=== PATIENT | female | born 1935 | race Caucasian/White ===

== ENCOUNTER → 2017-04-02 | Outpatient (CLI) | payer MEDICARE | END | disposition home or self-care (01) | LOC: LAB SHORT 08:04 → PLD 08:04 | DX: D48.5 Neoplasm of uncertain behavior of skin (principal) | CPT/HCPCS: 88305 ==

== ENCOUNTER → 2017-05-21 | Outpatient (CLI) | payer MEDICARE | END | disposition home or self-care (01) | LOC: LAB 17:06 | DX: N39.0 Urinary tract infection, site not specified (principal) | CPT/HCPCS: 87077; 87086; 87186 ==

== ENCOUNTER 2018-06-18 10:25 | Day surgery (SDC) | payer MEDICARE ==
[~2018-06-18] VITALS: Ht 162.6 cm; Wt 95.4 kg
[~2018-06-18 10:25] MED LIST: ATOR10; CLOP75; LOSA25; METF500C PO; PANT40; TRIA50
[2018-06-18] MEDS ORDERED: YUVAFEM10 MCG (11:07)
--- NOTE | 2018-06-18 11:13 | NUR ---
06/18/18 1113 Cash Bella 1ST AND 2ND IV ATTENPTS IN [facility] AND [facility]FA UNSUCCESSFUL, JOSE DE JESUS 3RD ATTEMPT SUCCESSFUL, LATHA
== END 2018-06-18 12:35 | disposition home or self-care (01) ==
LOC: ORSCSDS 10:25
PROVIDERS: Ophthalmology
PROC: 08RJ3JZ Replacement of Right Lens with Synthetic Substitute, Percutaneous Approach (ICD-10-PCS; principal; 2018-06-18 12:00)
DX: H25.11 Age-related nuclear cataract, right eye (principal); I10 Essential (primary) hypertension; G47.33 Obstructive sleep apnea (adult) (pediatric); E66.9 Obesity, unspecified; Z68.36 Body mass index [BMI] 36.0-36.9, adult; Z79.01 Long term (current) use of anticoagulants; Z79.899 Other long term (current) drug therapy; Z79.84 Long term (current) use of oral hypoglycemic drugs
CPT/HCPCS: 82947; J2001; J2250; J3010; V2632

== ENCOUNTER 2018-07-16 11:51 | Day surgery (SDC) | payer MEDICARE ==
[~2018-07-16] VITALS: Ht 162.6 cm; Wt 93.6 kg
[~2018-07-16 11:51] MED LIST changes: +YUVAFEM10 MCG
--- NOTE | 2018-07-16 13:06 | NUR ---
07/16/18 1306 Erin Mcghee GV USED
== END 2018-07-16 13:44 | disposition home or self-care (01) ==
LOC: ORSCSDS 11:51
PROVIDERS: Ophthalmology
PROC: 08RK3JZ Replacement of Left Lens with Synthetic Substitute, Percutaneous Approach (ICD-10-PCS; principal; 2018-07-16 13:30)
DX: H25.12 Age-related nuclear cataract, left eye (principal); E11.36 Type 2 diabetes mellitus with diabetic cataract; I10 Essential (primary) hypertension; G47.33 Obstructive sleep apnea (adult) (pediatric); Z86.73 Personal history of transient ischemic attack (TIA), and cerebral infarction without residual deficits; E78.5 Hyperlipidemia, unspecified; F41.9 Anxiety disorder, unspecified; Z79.84 Long term (current) use of oral hypoglycemic drugs; Z79.899 Other long term (current) drug therapy
CPT/HCPCS: 82947; J2001; J2250; J3010; V2632

== ENCOUNTER → 2018-10-05 | Outpatient (CLI) | payer MEDICARE ==
[~2018-10-05] MED LIST changes: +ALPR.25 PO; +ASCO500 PO; -ATOR10; +ATOR10 PO; -CLOP75; +CLOP75 PO; +Coenzyme Q10200 M2 PO; +Cranberry300 MG PO; +Dyazide 37.5-21 EACH PO; +Glucosamine-Ch480 ML PO; -LOSA25; +LOSA25 PO; +MOVE FREE JOIN1 EACH PO; -PANT40; +PANT40 PO; -YUVAFEM10 MCG; +YUVAFEM10 MCG VAG; +[UNRECOGNIZED DRUG - OTHER] PO
[2018-10-05 17:36] LABS: Source, Urine Clean Catch
[2018-10-05 18:23] LABS: Blood, Urine 2+ (Neg); Glucose Qualitative, Urine Neg (Neg); Ketones, Urine Neg (Neg); Leukocyte Esterase, Urine 3+ (Neg); Nitrite, Urine Pos (Neg); Protein, Urine 1+ (Neg); Specific Gravity, Urine 1.015 (1.003-1.022); Urobilinogen, Urine 3+ (Normal)
[2018-10-05 18:38] LABS: Appearance, Urine Hazy (Clear); Bilirubin, Urine 3+ (Neg); Color, Urine Orange (P-Yellow)
[2018-10-05 18:39] LABS: Amorphous Mod (0-Heavy); Bacteria Mod /hpf; Red Blood Cells, Urine 0-2 /hpf (0-2); Squamous Epithelial Cells Few /hpf (Few); White Blood Cells, Urine 50-100 /hpf (0-5)
== END | disposition home or self-care (01) ==
LOC: LAB SHORT 17:34 → LAB 17:34
PROVIDERS: Internal Medicine
DX: R35.0 Frequency of micturition (principal); R30.0 Dysuria
CPT/HCPCS: 81001; 87077; 87086; 87186

== ENCOUNTER 2018-12-15 09:47 | Day surgery (SDC) | payer MEDICARE ==
[~2018-12-15] VITALS: Ht 162.6 cm; Wt 94.6 kg
== END 2018-12-15 11:16 | disposition home or self-care (01) ==
LOC: ORSCSDS 09:47
PROVIDERS: Surgery
PROC: 0DBL8ZX Excision of Transverse Colon, Via Natural or Artificial Opening Endoscopic, Diagnostic (ICD-10-PCS; principal; 2018-12-15 11:00)
DX: Z12.11 Encounter for screening for malignant neoplasm of colon (principal); D12.3 Benign neoplasm of transverse colon; D17.9 Benign lipomatous neoplasm, unspecified; K57.30 Diverticulosis of large intestine without perforation or abscess without bleeding; Z86.010 Personal history of colon polyps; Z80.0 Family history of malignant neoplasm of digestive organs; G47.33 Obstructive sleep apnea (adult) (pediatric); Z86.73 Personal history of transient ischemic attack (TIA), and cerebral infarction without residual deficits; E11.9 Type 2 diabetes mellitus without complications; I10 Essential (primary) hypertension; E78.5 Hyperlipidemia, unspecified; F41.9 Anxiety disorder, unspecified; Z79.84 Long term (current) use of oral hypoglycemic drugs; Z79.899 Other long term (current) drug therapy
CPT/HCPCS: 82947; 88305; J2704; J7120

== ENCOUNTER → 2019-02-26 | Outpatient (CLI) | payer MEDICARE | END | disposition home or self-care (01) | LOC: LAB 07:32 → LAB SHORT 07:32 | DX: N39.0 Urinary tract infection, site not specified (principal); M54.5 Low back pain; R30.0 Dysuria | CPT/HCPCS: 87077; 87086; 87186 ==

== ENCOUNTER → 2019-11-08 | Outpatient (CLI) | payer MEDICARE | END | disposition home or self-care (01) | LOC: LAB SHORT 18:39 → LAB 18:39 | DX: R35.0 Frequency of micturition (principal) | CPT/HCPCS: 87086 ==

== ENCOUNTER → 2019-11-24 | Outpatient (CLI) | payer MEDICARE | LOC: LAB 15:22 → LAB SHORT 15:22 | DX: N76.0 Acute vaginitis (principal) | CPT/HCPCS: 88305 ==

== ENCOUNTER 2020-02-03 10:24 | Emergency (ER) | payer MEDICARE ==
[~2020-02-03] VITALS: Ht 162.6 cm; Wt 94.3 kg
[2020-02-03 10:48] LABS: Source, Urine Clean Catch
[2020-02-03 10:55] LABS: Appearance, Urine Cloudy (Clear); Bilirubin, Urine Neg (Neg); Blood, Urine 5+ (Neg); Color, Urine Yellow (P-Yellow); Glucose Qualitative, Urine Neg (Neg); Ketones, Urine Neg (Neg); Leukocyte Esterase, Urine 3+ (Neg); Nitrite, Urine Pos (Neg); Protein, Urine 3+ (Neg); Urobilinogen, Urine NORM (Normal)
[2020-02-03 11:09] LABS: Bacteria Many /hpf; Red Blood Cells, Urine TNTC /hpf (0-2); Squamous Epithelial Cells Rare /hpf (Few); White Blood Cells, Urine TNTC /hpf (0-5)
[2020-02-03] MEDS ORDERED: CEPHALEXIN500 M1 PO (11:51)
== END 2020-02-03 11:58 | disposition home or self-care (01) ==
LOC: ER 10:24
PROVIDERS: Emergency Medicine
DX: N39.0 Urinary tract infection, site not specified (principal); Z79.02 Long term (current) use of antithrombotics/antiplatelets; Z79.899 Other long term (current) drug therapy; Z79.84 Long term (current) use of oral hypoglycemic drugs; Z88.1 Allergy status to other antibiotic agents; Z88.2 Allergy status to sulfonamides
CPT/HCPCS: 81001; 87077; 87086; 87186; 99283

== ENCOUNTER → 2020-02-13 | Outpatient (CLI) | payer MEDICARE ==
[~2020-02-13] MED LIST changes: +CEPHALEXIN500 M1 PO
== END ==
LOC: LAB SHORT 14:42 → LAB 14:42
DX: R30.0 Dysuria (principal)
CPT/HCPCS: 87077; 87086; 87186

== ENCOUNTER → 2020-09-06 | Outpatient (CLI) | payer MEDICARE | END | disposition home or self-care (01) | LOC: LAB SHORT 17:45 | DX: N30.01 Acute cystitis with hematuria (principal) | CPT/HCPCS: 87077; 87086; 87186 ==

== ENCOUNTER → 2020-12-01 | Outpatient (CLI) | payer MEDICARE ==
[2020-12-01 14:07] LABS: Creatinine, Urine Random 59.1 mg/dL (27.00-270.00); Microalb/Creat Ratio UR, Rand 58.545 mg/g (0.000-30.000); Microalbumin, Random Urine 34.6 mg/L (0.000-20.000)
== END | disposition home or self-care (01) ==
LOC: LAB SHORT 12:34
PROVIDERS: Family Medicine
DX: R80.9 Proteinuria, unspecified (principal)
CPT/HCPCS: 82043; 82570

== ENCOUNTER → 2021-03-24 | Outpatient (CLI) | payer MEDICARE | END | disposition home or self-care (01) | LOC: LAB SHORT 16:00 | DX: R30.9 Painful micturition, unspecified (principal) | CPT/HCPCS: 87077; 87086; 87186 ==

== ENCOUNTER → 2021-05-30 | Outpatient (CLI) | payer MEDICARE | END | disposition home or self-care (01) | LOC: LAB 13:50 → LAB SHORT 13:50 | DX: R30.9 Painful micturition, unspecified (principal) | CPT/HCPCS: 87077; 87086; 87186 ==

== ENCOUNTER → 2021-06-08 | Outpatient (CLI) | payer MEDICARE | END | disposition home or self-care (01) | LOC: LAB SHORT 17:14 → LAB 17:14 | DX: R30.9 Painful micturition, unspecified (principal) | CPT/HCPCS: 87077; 87086; 87186 ==

== ENCOUNTER 2021-08-17 10:41 | Emergency (ER) | payer MEDICARE ==
[~2021-08-17] VITALS: Ht 162.6 cm; Wt 93.0 kg
[~2021-08-17 10:41] MED LIST changes: +CONEST.9 PO; +DYAZIDE 37.5-21 EACH PO; +PANT40; +POTCHL20ER PO; +XARELTO1 EAC1 PO; +XARELTO15 MG PO; +XARELTO20 MG PO
[2021-08-17 12:06] LABS: BASOPHILS ABSOLUTE AUTO 0.02 K/mm3 (0.00-0.23); BASOPHILS PERCENT AUTO 0 % (0-2); EOSINOPHILS ABSOLUTE AUTO 0.18 K/mm3 (0.00-0.68); EOSINOPHILS PERCENT AUTO 2 % (0-6); Hematocrit 37.5 % (33.0-51.0); Hemoglobin 12.3 g/dL (11.5-16.0); IMMATURE GRAN ABSOLUTE AUTO 0.04 K/mm3 (0.00-0.10); IMMATURE GRAN PERCENT AUTO 0 % (0-1); LYMPHOCYTES ABSOLUTE AUTO 1.58 K/mm3 (0.84-5.20); LYMPHOCYTES PERCENT AUTO 17 % (21-46); MONOCYTES ABSOLUTE AUTO 0.67 K/mm3 (0.16-1.47); MONOCYTES PERCENT AUTO 7 % (4-13); Mean Corpuscular HGB 30.1 pg (26.0-34.0); Mean Corpuscular HGB Conc 32.8 g/dL (31.5-36.5); Mean Corpuscular Volume 92 fL (80-100); Mean Platelet Volume 10.5 fL (9.1-12.4); NEUTROPHILS ABSOLUTE AUTO 7.02 K/mm3 (1.96-9.15); NEUTROPHILS PERCENT AUTO 74 % (41-73); Platelet Count 176 K/mm3 (150-400); RDW Coefficient Variation 12.8 % (11.7-14.2); RDW Standard Deviation 43.2 fL (35.1-46.3); Red Blood Cell Count 4.08 M/mm3 (3.80-5.20); White Blood Cell Count 9.51 K/mm3 (4.00-11.30)
[2021-08-17 12:18] LABS: Albumin, Blood 3.5 g/dL (3.4-5.0); Bilirubin, Total 0.7 mg/dL (0.1-1.0); Bun/Creatinine Ratio 24.5 (12.0-20.0); Calcium, Blood 10.2 mg/dL (8.5-10.1); Creatinine, Blood 1.02 mg/dL (0.40-1.00); Globulin, Blood 3.6 g/dL (2.2-4.0); Total Protein, Blood 7.1 g/dL (6.4-8.2)
[2021-08-17] MEDS ORDERED: HYDR1TAB94 PO (16:16)
== END 2021-08-17 16:50 | disposition home or self-care (01) ==
LOC: ER 10:41
PROVIDERS: Physician Assistant
DX: I26.99 Other pulmonary embolism without acute cor pulmonale (principal); Z88.1 Allergy status to other antibiotic agents; Z88.2 Allergy status to sulfonamides; Z79.899 Other long term (current) drug therapy; Z79.84 Long term (current) use of oral hypoglycemic drugs; Z79.02 Long term (current) use of antithrombotics/antiplatelets; Z79.01 Long term (current) use of anticoagulants
CPT/HCPCS: 80053; 85025; 93005; 93010; J2405; J3010

== ENCOUNTER → 2021-08-21 | Outpatient (CLI) | payer MEDICARE ==
[~2021-08-21] MED LIST changes: +HYDR1TAB94 PO
== END | disposition home or self-care (01) ==
LOC: LAB SHORT 14:22 → LAB 14:22
DX: R30.9 Painful micturition, unspecified (principal)
CPT/HCPCS: 87077; 87086; 87186

== ENCOUNTER → 2021-09-12 | Outpatient (CLI) | payer MEDICARE | END | disposition home or self-care (01) | LOC: LAB 15:49 → LAB SHORT 15:49 | DX: R30.0 Dysuria (principal); R30.9 Painful micturition, unspecified | CPT/HCPCS: 87077; 87086; 87186 ==

== ENCOUNTER → 2021-10-28 | Outpatient (CLI) | payer MEDICARE | END | disposition home or self-care (01) | LOC: LAB SHORT 11:42 → LAB 11:42 | DX: N39.0 Urinary tract infection, site not specified (principal) | CPT/HCPCS: 87077; 87086; 87186 ==

== ENCOUNTER → 2022-08-16 | Outpatient (CLI) | payer MEDICARE ==
[2022-08-16 11:49] LABS: Creatinine, Urine Random 50.2 mg/dL (27.00-270.00); Microalb/Creat Ratio UR, Rand 30.677 mg/g (0.000-30.000); Microalbumin, Random Urine 15.4 mg/L (0.000-20.000)
== END | disposition home or self-care (01) ==
LOC: LAB SHORT 09:48 → LAB 09:48
PROVIDERS: Family Medicine
DX: E11.29 Type 2 diabetes mellitus with other diabetic kidney complication (principal); E11.36 Type 2 diabetes mellitus with diabetic cataract
CPT/HCPCS: 82043; 82570

== ENCOUNTER → 2022-10-31 | Outpatient (CLI) | payer MEDICARE | END | disposition home or self-care (01) | LOC: LAB 14:00 → LAB SHORT 14:00 | DX: M10.9 Gout, unspecified (principal) | CPT/HCPCS: 84550 ==

== ENCOUNTER 2023-06-28 05:22 | Observation (INO) | payer MEDICARE ==
[~2023-06-28] VITALS: Ht 162.6 cm; Wt 94.7 kg
[~2023-06-28 05:22] MED LIST changes: +Acerola C500 MG PO; +Cranberry400 MG PO; +GLUC500 PO; +[UNRECOGNIZED DRUG - CODE] PO
[2023-06-28] MEDS ORDERED: NS 1,000 ML IV SCH ×2 (05:35→05:50)
[2023-06-28 05:42] LABS: BASOPHILS ABSOLUTE AUTO 0.02 K/mm3 (0.00-0.23); BASOPHILS PERCENT AUTO 0 % (0-2); EOSINOPHILS ABSOLUTE AUTO 0.26 K/mm3 (0.00-0.68); EOSINOPHILS PERCENT AUTO 3 % (0-6); Hematocrit 34.4 % (33.0-51.0); Hemoglobin 11.3 g/dL (11.5-16.0); IMMATURE GRAN ABSOLUTE AUTO 0.04 K/mm3 (0.00-0.10); IMMATURE GRAN PERCENT AUTO 0 % (0-1); LYMPHOCYTES ABSOLUTE AUTO 2.65 K/mm3 (0.84-5.20); LYMPHOCYTES PERCENT AUTO 26 % (21-46); MONOCYTES ABSOLUTE AUTO 0.74 K/mm3 (0.16-1.47); MONOCYTES PERCENT AUTO 7 % (4-13); Mean Corpuscular HGB 30.2 pg (26.0-34.0); Mean Corpuscular HGB Conc 32.8 g/dL (31.5-36.5); Mean Corpuscular Volume 92 fL (80-100); Mean Platelet Volume 10.5 fL (9.1-12.4); NEUTROPHILS ABSOLUTE AUTO 6.38 K/mm3 (1.96-9.15); NEUTROPHILS PERCENT AUTO 63 % (41-73); Platelet Count 225 K/mm3 (150-400); RDW Standard Deviation 43.8 fL (35.1-46.3); Red Blood Cell Count 3.74 M/mm3 (3.80-5.20); White Blood Cell Count 10.09 K/mm3 (4.00-11.30)
[2023-06-28 06:03] LABS: Albumin/Globulin Ratio 0.7 (0.8-1.8); Bilirubin, Total 0.6 mg/dL (0.1-1.0); Bun/Creatinine Ratio 24.8 (12.0-20.0); Calcium, Blood 10.3 mg/dL (8.5-10.1); Creatinine, Blood 1.25 mg/dL (0.40-1.00); Globulin, Blood 4.2 g/dL (2.2-4.0); Magnesium, Blood 1.7 mg/dL (1.6-2.4); Potassium, Blood 4.7 mmol/L (3.5-5.5); Total Protein, Blood 7.2 g/dL (6.4-8.2)
[2023-06-28 06:06] LABS: International Normalized Ratio 0.93
[2023-06-28] MEDS ORDERED: FentaNYL Citrate 50 MCG/ML 2 ML Injection IV ONE (06:55)
[2023-06-28] MEDS ORDERED: Atorvastatin 40 MG Tab PO SCH (10:00)
[2023-06-28] MEDS ORDERED: Aspirin 325 MG Tab PO ONE (10:00)
[2023-06-28] MEDS ORDERED: Heparin Sodium,Porcine/0.5 NS 500 ML IV SCH (10:20)
[2023-06-28] MEDS ORDERED: Heparin Sodium 5000 Units/ML 1ML MDV IV ONE (10:20)
[2023-06-28 11:00] VITALS: BP 131/61
[2023-06-28] MEDS ORDERED: CEPH250A PO (11:08)
[2023-06-28] MEDS ORDERED: Insulin Human Lispro 100 Units/ML 3ML Syringe SC SCH (11:49)
--- NOTE | 2023-06-28 11:54 | NUR ---
ARRIVAL TO PCU patient arrived to pcu at 1050. patient walked into bathroom from [facility] and then to the bed. patient did this independently. patient denies chest pain/pressure at this time. vital signs stable. tele sinus rhythm with pvc and pac and lbbb. patient has shortness of breath with exertion. on room air with spo2 >95%. patient lung sounds dim throughout bilaterally. gi/gu within normal limits. neuro is intact. alert and oriented x4. perrla. see admit shift assesment for further detials. plan of care is up to date at this time.
[2023-06-28 13:01] LABS: Adenovirus Not Detected (NOT DETECT); Bordetella pertussis Not Detected (NOT DETECT); Chlamydophila pneumoniae Not Detected (NOT DETECT); Coronavirus 229E Not Detected (NOT DETECT); Coronavirus HKU1 Not Detected (NOT DETECT); Coronavirus NL63 Not Detected (NOT DETECT); Coronavirus OC43 Not Detected (NOT DETECT); Human Metapneumovirus Not Detected (NOT DETECT); Human Rhinovirus/Enterovirus Not Detected (NOT DETECT); Influenza A/2009-H1 Not Detected (NOT DETECT); Influenza A/H1 Not Detected (NOT DETECT); Influenza A/H3 Not Detected (NOT DETECT); Influenza B Not Detected (NOT DETECT); Mycoplasma pneumoniae Not Detected (NOT DETECT); Parainfluenza Virus 1 Not Detected (NOT DETECT); Parainfluenza Virus 2 Not Detected (NOT DETECT); Parainfluenza Virus 3 Not Detected (NOT DETECT); Parainfluenza Virus 4 Not Detected (NOT DETECT); Respiratory Syncytial Virus Not Detected (NOT DETECT); SARS-Cov-2 (COVID-19), BioFire Not Detected (NOT DETECT)
[2023-06-28 15:40] LABS: Source, Urine Clean Catch
[2023-06-28 15:43] LABS: Appearance, Urine Hazy (Clear); Bilirubin, Urine Neg (Neg); Blood, Urine Neg (Neg); Color, Urine Yellow (P-Yellow); Glucose Qualitative, Urine Neg (Neg); Ketones, Urine 1+ (Neg); Leukocyte Esterase, Urine 2+ (Neg); Nitrite, Urine Neg (Neg); Protein, Urine 2+ (Neg); Urobilinogen, Urine NORM (Normal)
[2023-06-28 15:52] LABS: Hyaline Casts 0-2 /lpf (0-2)
[2023-06-28 15:53] LABS: Bacteria Mod /hpf; Red Blood Cells, Urine 0-2 /hpf (0-2); Squamous Epithelial Cells Many /hpf (Few)
[2023-06-28 16:33] VITALS: BP 144/66
[2023-06-28] MEDS ORDERED: Morphine Sulfate 10 MG/ML 1MLSYR IV PRN (16:50)
[2023-06-28] MEDS ORDERED: Mag Hydrox/Al Hydrox/Simeth 18 ML,Lidocaine 2% Viscous Soln 9 ML,Atropine/Scopalam/Hyos... PO ONE (17:00)
--- NOTE | 2023-06-28 17:59 | NUR ---
shift summary patient complained once since arriving to pcu of chest pain, and medicated with pain medication and gi cocktail. patient reports slight improvement in pain, rated at 6. vital signs stable. otherwise no acute changes. plan of care remains up to date.
[2023-06-28 18:22] LABS: Source, Urine Straight Cath
[2023-06-28 18:25] LABS: Appearance, Urine Clear (Clear); Bilirubin, Urine Neg (Neg); Blood, Urine 1+ (Neg); Color, Urine Yellow (P-Yellow); Glucose Qualitative, Urine Neg (Neg); Ketones, Urine Neg (Neg); Leukocyte Esterase, Urine Neg (Neg); Nitrite, Urine Neg (Neg); Protein, Urine 1+ (Neg); Specific Gravity, Urine 1.015 (1.003-1.022); Urobilinogen, Urine NORM (Normal)
[2023-06-28 18:32] LABS: Bacteria Rare /hpf; Hyaline Casts 0-2 /lpf (0-2); Red Blood Cells, Urine 0-2 /hpf (0-2); Squamous Epithelial Cells Not Seen /hpf (Few); White Blood Cells, Urine 0-2 /hpf (0-5)
[2023-06-28 19:54] VITALS: BP 135/56
[2023-06-28] MEDS ORDERED: Naloxone HCl 0.4MG / ML 1ML Vial IV PRN (20:30)
[2023-06-28] MEDS ORDERED: Morphine Sulfate 4 MG/1 ML Injection IV PRN (20:30)
[2023-06-28] MEDS ORDERED: Acetaminophen 500 MG Tab PO PRN (20:35)
[2023-06-28] MEDS ORDERED: HYDROcodone 5-APAP 325 TAB PO ONE (21:00)
[2023-06-28] MEDS ORDERED: Clopidogrel Bisulfate 75 MG Tab PO SCH (21:00)
[2023-06-28] MEDS ORDERED: HYDROcodone 5-APAP 325 TAB PO PRN (21:00)
[2023-06-28 23:47] VITALS: BP 137/55
[2023-06-29] MEDS ORDERED: Clarify Drug Order XX ONE ×2 (00:10→06:40)
[2023-06-29 05:27] VITALS: BP 139/61
--- NOTE | 2023-06-29 05:46 | NUR ---
SHIFT SUMMARY PATIENT ALERT AND ORIENTED x4, ABLE TO MAKE NEEDS KNOWN TO STAFF. BP STABLE, TELE READING SR, BBB 70s DURING THE NIGHT. PATIENT ON RA WHILE AWAKE, WEARING HOME CPAP WHILE SLEEPING, SPO2 >90%. PATIENT STANDBY ASSIST TO BATHROOM, ADEQUATE OUTPUT DURING THE NIGHT. PATIENT MEDICATED PER EMAR FOR CHEST PAIN, PATIENT REPORTED BETTER RELIEF OF PAIN AFTER SWITCHING TO NORCO. NO OTHER CHANGES DURING THE NIGHT. PATIENT AWAITING CARDIOLOGY CONSULT THIS AM. WILL REPORT TO DAY SHIFT RN.
[2023-06-29] MEDS ORDERED: Pantoprazole Sodium 40 MG Tab PO SCH (06:00)
[2023-06-29 06:10] LABS: BASOPHILS ABSOLUTE AUTO 0.04 K/mm3 (0.00-0.23); BASOPHILS PERCENT AUTO 0 % (0-2); EOSINOPHILS ABSOLUTE AUTO 0.42 K/mm3 (0.00-0.68); EOSINOPHILS PERCENT AUTO 5 % (0-6); Hematocrit 35.3 % (33.0-51.0); Hemoglobin 11.1 g/dL (11.5-16.0); IMMATURE GRAN ABSOLUTE AUTO 0.03 K/mm3 (0.00-0.10); IMMATURE GRAN PERCENT AUTO 0 % (0-1); LYMPHOCYTES ABSOLUTE AUTO 2.36 K/mm3 (0.84-5.20); LYMPHOCYTES PERCENT AUTO 27 % (21-46); MONOCYTES PERCENT AUTO 9 % (4-13); Mean Corpuscular HGB 29.8 pg (26.0-34.0); Mean Corpuscular HGB Conc 31.4 g/dL (31.5-36.5); Mean Corpuscular Volume 95 fL (80-100); Mean Platelet Volume 10.5 fL (9.1-12.4); NEUTROPHILS ABSOLUTE AUTO 5.27 K/mm3 (1.96-9.15); NEUTROPHILS PERCENT AUTO 59 % (41-73); Platelet Count 190 K/mm3 (150-400); RDW Coefficient Variation 13.4 % (11.7-14.2); RDW Standard Deviation 47.4 fL (35.1-46.3); Red Blood Cell Count 3.72 M/mm3 (3.80-5.20); White Blood Cell Count 8.92 K/mm3 (4.00-11.30)
[2023-06-29 06:50] LABS: Albumin, Blood 2.7 g/dL (3.4-5.0); Albumin/Globulin Ratio 0.6 (0.8-1.8); Bilirubin, Total 0.6 mg/dL (0.1-1.0); Bun/Creatinine Ratio 26.2 (12.0-20.0); Calcium, Blood 9.7 mg/dL (8.5-10.1); Creatinine, Blood 1.07 mg/dL (0.40-1.00); Globulin, Blood 4.4 g/dL (2.2-4.0); Potassium, Blood 4.2 mmol/L (3.5-5.5); Total Protein, Blood 7.1 g/dL (6.4-8.2)
--- NOTE | 2023-06-29 07:48 | NUR ---
AM NOTE PT IS ALERT AND ORIENTED X 4. SHE REPORTED THIS AM IS THE FIRST TIME SHE HAS HAD AN APPETITE IN A WHILE. SHE REPORTED FEELING MINIMAL CP AND DENIED NEEDED MEDICATION TO MANAGE PAIN. SHE IS CURRENTLY IN BED EATING BREAKFAST. CALL LIGHT W/IN REACH.
[2023-06-29 07:50] VITALS: BP 117/102
[2023-06-29] MEDS ORDERED: Cephalexin Monohydrate 250 MG Cap PO SCH (09:00)
[2023-06-29] MEDS ORDERED: Cranberry Extract 250MG W/30 MG Vitamin C Tab PO SCH (09:00)
[2023-06-29] MEDS ORDERED: Ascorbic Acid 250 MG Chew PO SCH (09:00)
[2023-06-29] MEDS ORDERED: COENZYME Q10 PO SCH (09:00)
[2023-06-29] MEDS ORDERED: Glucosamine Sulfate 500 MG Cap PO SCH (09:00)
[2023-06-29] MEDS ORDERED: Metoprolol Succinate 25 MG TABCR PO SCH (10:00)
--- NOTE | 2023-06-29 10:19 | NUR ---
CARE NOTE PT AMBULATED W/ THIS RN AROUND UNIT AND REPORTED "FEELING GOOD." SHE SAID THERE WAS VERY MINIMAL CHEST PRESSURE. HR STABLE. SHE DENIED FEELING LIGHTHEADED/DIZZY.
[2023-06-29 10:24] VITALS: BP 154/71
[2023-06-29 11:11] VITALS: BP 134/60
[2023-06-29] MEDS ORDERED: METO25ER PO (11:29)
[2023-06-29] MEDS ORDERED: FURO40 PO (11:29)
[2023-06-29] MEDS ORDERED: Isosorbide Mono30 MG PO (11:29)
--- NOTE | 2023-06-29 12:18 | NUR ---
DISCHARGE NOTE PT WAS ALERT AND ORIENTED X 4. VSS. SHE REPORTED MINIMAL CHEST DISCOMFORT BUT DENIED NEEDING PAIN MANAGEMENT. THIS RN REMOVED ALL IV ACCESS. THIS RN DISCUSSED DISCHARGE INSTRUCTIONS INCLUDING FOLLOW UP APPOINTMENTS, MEDICAITON REGIMEN WELL EDUCATION REGARDING NEW MEDICATIONS. PT DENIED FEELING SOB, NAUSEOUS, OR LIGHTHEADED/DIZZY. SHE WAS INDEPENDENT IN ROOM AND APPEARED STEADY ON HER FEET. SHE LEFT PCU AT APPROX. 1215 AND WAS ESCORTED TO HER SONS CAR VIA WHEELCHAIR BY BRAYAN THOMPSON. ALL OF HER PERSONAL BELONGINGS WENT WITH HER.
[2023-06-30] MEDS ORDERED: Isosorbide Mononitrate 30 MG TABCR PO SCH (09:00)
[2023-06-30] MEDS ORDERED: Furosemide 40 MG Tab PO SCH (09:00)
== END 2023-06-29 12:22 | disposition home or self-care (01) ==
LOC: ER 05:22 → PCU 05:23 → ER 09:15 → PCU 10:48
PROVIDERS: Student in an Organized Health Care Education/Training Program; ADMIT Internal Medicine
DX: I25.118 Atherosclerotic heart disease of native coronary artery with other forms of angina pectoris (principal); I95.9 Hypotension, unspecified; K21.9 Gastro-esophageal reflux disease without esophagitis; M10.9 Gout, unspecified; E78.5 Hyperlipidemia, unspecified; I10 Essential (primary) hypertension; G47.30 Sleep apnea, unspecified; E11.40 Type 2 diabetes mellitus with diabetic neuropathy, unspecified; Z88.8 Allergy status to other drugs, medicaments and biological substances; Z88.2 Allergy status to sulfonamides; Z79.84 Long term (current) use of oral hypoglycemic drugs; Z79.899 Other long term (current) drug therapy
CPT/HCPCS: 0202U; 36415; 71045; 80053; 81001; 82947; 83605; 83690; 83735; 83880; 84145; 84484; 85025; 85610; 85730; 86850; 86900; 86901; 87040; 87077; 87086; 87186; 93005; 93010; 93306; 94760; 96361; 96374; 99285-25; A9270; G0378; J1644; J2270; J3010; J7030; J7060

== ENCOUNTER → 2023-08-21 | Outpatient (CLI) | payer MEDICARE ==
[~2023-08-21] MED LIST changes: +CEPH250A PO; +FURO40 PO; +Isosorbide Mono30 MG PO; +METO25ER PO
[2023-08-21 11:50] LABS: Microalb/Creat Ratio UR, Rand 18.571 mg/g (0.000-30.000); Microalbumin, Random Urine 19.5 mg/L (0.000-20.000)
== END | disposition home or self-care (01) ==
LOC: LAB SHORT 10:29 → LAB 10:29
PROVIDERS: Family Medicine
DX: E11.36 Type 2 diabetes mellitus with diabetic cataract (principal); E11.29 Type 2 diabetes mellitus with other diabetic kidney complication
CPT/HCPCS: 82043; 82570